=== PATIENT | female | born 1955 | race Hispanic/Latino ===

== ENCOUNTER → 2020-01-01 | Outpatient (CLI) | payer OTHER, MEDICARE ==
[~2020-01-01] MED LIST: ALBUTEROL SULFATE 0.083% 2.5 MG/3 ML INH IH ONE; AMLO10TA7 PO; ATOR10TA69 PO; CARV6.25 PO; CLOP75TA32 PO; ESOM40CA54 PO; FLUT1DIS4 IH; FURO20TA4 PO; ONDA-104 PO; TRAZ-185 PO
== END | disposition home or self-care (01) ==
LOC: RESP 08:49
PROVIDERS: ATTEND Internal Medicine
DX: R53.1 Weakness (principal)
CPT/HCPCS: 94060; 94727; 94729

== ENCOUNTER → 2022-09-07 | Outpatient (CLI) | payer OTHER, MEDICARE ==
[~2022-09-07] MED LIST changes: -ALBUTEROL SULFATE 0.083% 2.5 MG/3 ML INH IH ONE; +AMLO-258 PO; -AMLO10TA7 PO
== END | disposition home or self-care (01) ==
LOC: RAH 09:01
PROVIDERS: ATTEND Internal Medicine Cardiovascular Disease
DX: N28.1 Cyst of kidney, acquired (principal); I10 Essential (primary) hypertension; R10.9 Unspecified abdominal pain
CPT/HCPCS: 76770; 93975

== ENCOUNTER → 2022-11-10 | Outpatient (CLI) | payer OTHER, MEDICARE | END | disposition home or self-care (01) | LOC: RAH 12:37 | PROVIDERS: ATTEND Internal Medicine Cardiovascular Disease | DX: I65.23 Occlusion and stenosis of bilateral carotid arteries (principal) | CPT/HCPCS: 93880 ==

== ENCOUNTER → 2022-11-10 | Outpatient (CLI) | payer OTHER, MEDICARE ==
[2022-11-10 12:39] LABS: CREATININE 0.7 mg/dL (0.5-1.5); POTASSIUM 3.8 mmol/L (3.5-5.1)
== END | disposition home or self-care (01) ==
LOC: LAB 11-04 10:24
PROVIDERS: ATTEND Internal Medicine Cardiovascular Disease
DX: I65.23 Occlusion and stenosis of bilateral carotid arteries (principal); I10 Essential (primary) hypertension
CPT/HCPCS: 36415; 80048; 93880

== ENCOUNTER → 2023-06-21 | Outpatient (CLI) | payer OTHER, MEDICARE | END | disposition home or self-care (01) | LOC: SHCH 14:52 | PROVIDERS: ATTEND Internal Medicine Cardiovascular Disease | DX: I73.9 Peripheral vascular disease, unspecified (principal) | CPT/HCPCS: 93925 ==

== ENCOUNTER → 2024-09-16 | Outpatient (CLI) | payer OTHER, MEDICARE ==
[~2024-09-16] MED LIST changes: -ESOM40CA54 PO; +ESOM40CA66 PO
[2024-09-16 12:20] LABS: CREATININE 1.1 mg/dL (0.5-1.0); POTASSIUM 4.5 mmol/L (3.5-5.1)
== END | disposition home or self-care (01) ==
LOC: LAB 08:42
PROVIDERS: ATTEND Internal Medicine Cardiovascular Disease
DX: I20.9 Angina pectoris, unspecified (principal)
CPT/HCPCS: 36415; 80048

== ENCOUNTER → 2024-09-26 | Outpatient (CLI) | payer OTHER, MEDICARE ==
[~2024-09-26] MED LIST changes: +IOHEXOL 350 MG/ML 100ML INFUS..BTL IV ONE; +metoPROLOL tartRATE 1 MG/ML 5ML VIAL IV ONE
--- NOTE | 2024-09-26 15:14 | HMCIMG ---
CT CARDIAC ANGIO W/CONT. CCTA REASON: Angina pectoris, unspecified COMPARISON: None TECHNIQUE: Images are obtained through the heart in the axial plane before and during bolus IV contrast infusion, 100 cc Omnipaque 350. 2-D and 3-D multiplanar reconstruction images were then performed. The injection had to be repeated once due to motion artifact on the first sequence, total contrast volume was 200 cc. FINDINGS: This dictation is for the noncardiac findings only. Cardiac and coronary artery findings are reported separately. Visualized portions of the lungs are clear. There is normal-appearing pulmonary interstitium. There is no hilar or mediastinal lymphadenopathy. Chest wall structures appear unremarkable. There is a small hiatal hernia. IMPRESSION: 1. Small hiatal hernia, otherwise unremarkable noncardiac portions of CT cardiac angiography.
--- NOTE | 2024-10-06 17:26 | CARDIOLOGY ---
RAD REPORT: [facility] CT ANGIO RADIOLOGY REPORT: CORONARY CT ANGIOGRAPHY DATE: Oct 06, 2024 QUALITY: Excellent CLINICAL HISTORY AND INDICATION: [ coronary artery bypass graft patency ] TECHNIQUE: After obtaining a preliminary ophthalmic medical technician image, contrast imaging performed on an [employer] [id number] scanner. A dedicated, limited window, coronary imaging protocol was used, with single breath-hold, retrospective ECG gating, and automated arrhythmia rejection. 100 cc of low osmolar contrast agent: Omnipaque 350 was delivered via a 18-gauge IV catheter in the right antecubital fossa, using a power injector and followed by 60 cc of normal saline bolus as a chaser. Collimated images were reformatted at 0.5 mm intervals, and sent to an offline independent workstation for interpretation, using 3D anatomic reconstructions: Curved multiplanar reconstructions, maximum intensity projections, and multiplan ar imaging. 20 mg IV metoprolol was administered prior to scanning. 0.8 mg SL nitroglycerin was given. CORONARY ARTERY DESCRIPTIONS: The coronary arteries arise in normal position. Left main coronary artery: Normal caliber vessel that bifurcates into the LAD and LCx. No stenosis. Left anterior descending coronary artery: Normal caliber vessel and gives rise to diagonal and septal branches. Severe stenosis of the proximal LAD. Left circumflex coronary artery: Normal caliber, nondominant and gives rise to a large OM branch. There is mid LCx 50% stenosis. Right coronary artery: Large, dominant vessel giving rise to the PL and PDA branches. No stenosis. Patent HINOJOSA to LAD. Thoracic Aorta: Normal diameter. Hannah Pittman MD Cardiovascular Disease [facility] HANNAH PITTMAN MD Oct 06, 2024 17:26
== END | disposition home or self-care (01) ==
LOC: RAH 12:17
PROVIDERS: ATTEND Internal Medicine Cardiovascular Disease
DX: I20.9 Angina pectoris, unspecified (principal); K44.9 Diaphragmatic hernia without obstruction or gangrene; Z95.1 Presence of aortocoronary bypass graft
CPT/HCPCS: 75574; J3490; Q9967

== ENCOUNTER 2025-02-13 07:20 | Day surgery (SDC) | payer OTHER, MEDICAID ==
[2025-02-11 10:46] VITALS: BP 137/80; PULSE 75; RESP 15; TEMP 97.2
[2025-02-11 10:54] LABS: BASOPHILS # (AUTO) 0.05 K/uL (0.00-0.20); BASOPHILS % (AUTO) 0.7 % (0.0-5.0); EOSINOPHILS # (AUTO) 0.05 K/uL (0.00-0.70); EOSINOPHILS % (AUTO) 0.7 % (0.0-8.0); HEMATOCRIT 40.6 % (36-48); IMMATURE GRANULOCYTE ABSOLUTE 0.03 K/uL (0-1); LYMPHOCYTES # (AUTO) 2.6 K/uL (1.0-4.8); LYMPHOCYTES % (AUTO) 37.9 % (21.0-51.0); MEAN CORPUSCULAR HEMOGLOBIN 28.9 pg (27.0-33.0); MEAN CORPUSCULAR HGB CONC 33.7 g/dL (32.0-36.0); MEAN CORPUSCULAR VOLUME 85.7 fL (79-99); MONOCYTES # (AUTO) 0.4 K/uL (0.1-1.0); MONOCYTES % (AUTO) 5.6 % (3.0-13.0); NEUTROPHILS # (AUTO) 3.7 K/uL (1.8-7.7); NEUTROPHILS % (AUTO) 54.7 % (40.0-77.0); PLATELET COUNT (AUTO) 255 K/uL (130-400); RED BLOOD CELL COUNT(AUTO) 4.74 MIL/uL (4.00-5.50); RED CELL DISTRIBUTION WIDTH 12.7 % (11.0-15.5); WHITE BLOOD COUNT (AUTO) 6.8 K/uL (4.8-10.8)
[2025-02-11 10:58] LABS: POTASSIUM 4.7 mmol/L (3.5-5.1)
[2025-02-11 11:26] LABS: PROTHROMBIN TIME 10.6 SEC (9.6-11.6)
[2025-02-11 11:28] LABS: PARTIAL THROMBOPLASTIN TIME 25.6 SEC (26.3-35.5)
--- NOTE | 2025-02-11 13:00 | EKG ---
[facility] Test Date: 2025-02-11 Test Time: 10:40:08 Pat Name: NAHEED MORENO Department: [facility] Room: Gender: F Percher: [id number] : 1955 Requested By: MERRICK KAHN Order Number: [id number] Reading MD: Devin Pratt Measurements Intervals [place] Rate: 75 P: 0 ID: [id number] QRS: 16 QRSD: 90 T: 140 QT: 365 QTc: 408 Interpretive Statements Atrial-paced complexes Nonspecific T abnrm, anterolateral leads Compared to ECG 05/26/2016 06:24:01 Sinus rhythm no longer present Electronically Signed On 02-11-2025 19:43:19 CDT by Devin Pratt Please click the below link to view image of tracing.
[~2025-02-13] VITALS: Ht 170.2 cm; Wt 76.5 kg
[2025-02-13] VITALS (8 sets, daily range): BP systolic 109–173; BP diastolic 56–87; PULSE 70–84; RESP 12–18; TEMP 97.4–97.6
[~2025-02-13 07:20] MED LIST changes: -AMLO-258 PO; -ATOR10TA69 PO; +CARV12.511 PO; -CARV6.25 PO; +CLON0.1T PO; -ESOM40CA66 PO; -FLUT1DIS4 IH; -FURO20TA4 PO; -IOHEXOL 350 MG/ML 100ML INFUS..BTL IV ONE; +NIFE-39 PO; +NITR0.4T50 SL; +OMEP40CA21 PO; -ONDA-104 PO; +RANO10005 PO; +RIVA20TA PO; +SPIR25TA6 PO; -TRAZ-185 PO; +TRAZ-187 PO; -metoPROLOL tartRATE 1 MG/ML 5ML VIAL IV ONE
[2025-02-13] MEDS ORDERED: HEParin 10,000 UNIT/10ML (1,000 UNIT/ML) VIAL ONE (10:59)
[2025-02-13] MEDS ORDERED: BUPIvacaine/PF 0.25% 30ML VIAL IJ ONE ×2 (10:59→11:36)
[2025-02-13] MEDS ORDERED: LIDOCAINE HCL 1% MDV 50ML VIAL ONE ×2 (10:59→11:36)
[2025-02-13] MEDS ORDERED: ceFAZolin SODIUM 1 GM VIAL ONE ×2 (11:02→11:36)
[2025-02-13] MEDS ORDERED: SODIUM BICARB 50MEQ 50ML VIAL 50 ML ONE (11:36)
[2025-02-13] MEDS ORDERED: FENTanyl CITRate PF 50 MCG/1 ML 2ML VIAL ONE ×2 (11:51→12:43)
[2025-02-13] MEDS ORDERED: MIDAZOLAM HCL 1 MG/ML 2ML VIAL ONE ×4 (11:52→12:43)
[2025-02-13] MEDS ORDERED: BACITRACIN 1 EACH PACKET TP ONE (13:26)
[2025-02-13] MEDS ORDERED: acetaMINOPHEN WITH coDEINE 1 TAB TAB PO PRN ×2 (13:30→14:00)
[2025-02-13] MEDS ORDERED: acetaMINOPHEN 500 MG TABLET PO PRN (13:30)
[2025-02-13] MEDS ORDERED: TRAM50TA4 PO (13:36)
== END 2025-02-13 16:30 | disposition home or self-care (01) ==
LOC: DAH 07:20
PROVIDERS: ATTEND Internal Medicine Cardiovascular Disease
DX: Z45.010 Encounter for checking and testing of cardiac pacemaker pulse generator [battery] (principal); I49.5 Sick sinus syndrome; R00.1 Bradycardia, unspecified; I25.10 Atherosclerotic heart disease of native coronary artery without angina pectoris; I48.0 Paroxysmal atrial fibrillation; Z88.6 Allergy status to analgesic agent; Z88.8 Allergy status to other drugs, medicaments and biological substances; Z95.1 Presence of aortocoronary bypass graft; Z86.73 Personal history of transient ischemic attack (TIA), and cerebral infarction without residual deficits; Z79.01 Long term (current) use of anticoagulants; Z79.899 Other long term (current) drug therapy
CPT/HCPCS: 80048; 85025; 85610; 85730; 36415; 93005; 99157 ×5; 99156; 33228; A4223 ×3; C1785; J3010 ×2; J0690; J0665; J3490 ×2; J2250 ×4; A4215; A6251; A4222; A4221; A4663; A4216; A6258; A4606; J1644